=== PATIENT | female | born 1990 | race Caucasian/White ===

== ENCOUNTER 2017-05-05 21:04 | Emergency (ER) ==
[2017-05-05 21:16] VITALS: BP 122/80; TEMP 97.8; BMI 22.3
[2017-05-05 21:39] LABS: URINE PREGNANCY INTERNAL QC INTERNAL QC VALID
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
[2017-05-05] MEDS ORDERED: MOTRIN SUSP PO STA (22:33)
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
== END 2017-05-05 22:57 | disposition home or self-care (01) ==
LOC: ED 21:04
DX: S16.1XXA Strain of muscle, fascia and tendon at neck level, initial encounter (principal); R51 Headache; F17.210 Nicotine dependence, cigarettes, uncomplicated; V89.2XXA Person injured in unspecified motor-vehicle accident, traffic, initial encounter
CPT/HCPCS: 81025; 99283